=== PATIENT | female | born 1950 | race African-American/Black ===

== ENCOUNTER 2016-12-30 08:01 | Day surgery (SDC) | payer MEDICARE ==
[2016-12-29 08:32] VITALS: BMI 30.4
[2016-12-30] MEDS ORDERED: MIDAZOLAM HCL 2 MG/2 ML SINGLE DOSE VIAL ONE (10:52)
[2016-12-30] MEDS ORDERED: PROPOFOL 20 ML ONE (11:06)
[2016-12-30 12:09] VITALS: TEMP 97.8
--- NOTE | 2016-12-30 12:44 | OP ---
DATE OF OPERATION: 12/30/2016 PERFORMING PHYSICIAN: Lenny Oneal MD PREOPERATIVE DIAGNOSIS: Low back pain with lumbar radiculopathy. POSTOPERATIVE DIAGNOSIS: Low back pain with lumbar radiculopathy. PROCEDURE: Lumbar epidural steroid injection, interlaminar at the L4-L5, on the left side. ANESTHESIA: Local and MAC ANESTHESIOLOGIST: Bill Gerard MD DESCRIPTION OF PROCEDURE: I discussed with her about risks, benefits, and alternative treatments, not only limited to infection, fever, headache, numbness, tingling, weakness, injury to nerves, blood vessels, or muscles. Patient understood, agreed, and signed the written consent. The patient was placed in the prone position, head, abdomen, and legs supported with pillows. The lumbosacral area was prepped and draped with Betadine x3 and alcohol x3. Under fluoroscopy, L4-L5 vertebrae identified, on the left side. At this level, 3 mL of 1% lidocaine were infiltrated into the skin and subcutaneous tissues. A 20-gauge 3.5-inch Tuohy needle was used to expose the epidural space with a loss of resistance technique under intermittent fluoroscopy both in AP and oblique views. Omnipaque 2 mL was injected to see the flow of the dye cranially and caudally after negative aspiration. There was no venous uptake or CSF spread. Celestone 2.5 mL mixed with 1.5 mL of 0.25% preservative-free Marcaine, total around 4 mL, was injected into the epidural space after negative aspiration. While needle was withdrawn, 1 mL of 1% lidocaine was infiltrated. Bleeding was checked. Betadine was wiped off. A sterile bandage was placed. Patient was transferred to the recovery room. After observation, patient was discharged as per criteria. There was no immediate complication. Patient was told to apply ice. If any problem, call me or report to ER. Patient was given the followup appointment. Patient will resume regular diet. LENNY ONEAL M.D. BAMBI/[id number]
[2016-12-30 13:06] VITALS: BP 132/84; PULSE 62
== END 2016-12-30 13:07 | disposition home or self-care (01) ==
LOC: FASU 08:01
PROVIDERS: ATTEND Physical Medicine & Rehabilitation
PROC: 3E0R3CZ (ICD-10-PCS; 2016-12-30)
PROC: B01B1ZZ Fluoroscopy of Spinal Cord using Low Osmolar Contrast (ICD-10-PCS; 2016-12-30)
PROC: 3E0R33Z Introduction of Anti-inflammatory into Spinal Canal, Percutaneous Approach (ICD-10-PCS; principal; 2016-12-30 11:10)
DX: M54.16 Radiculopathy, lumbar region (principal); M54.5 Low back pain
CPT/HCPCS: 72100-TC; 94760

== ENCOUNTER 2017-02-03 09:40 | Day surgery (SDC) | payer MEDICARE ==
[2017-02-02 15:25] VITALS: BMI 30.6
[2017-02-03 10:05] VITALS: TEMP 98.6
[2017-02-03] MEDS ORDERED: LIDOCAINE HCL 1%, 10 MG/ML (20ML VIAL) IJ ONE (12:33)
[2017-02-03] MEDS ORDERED: IOHEXOL 180 MG/1 ML ML IJ ONE (12:34)
[2017-02-03] MEDS ORDERED: BUPIVACAINE HCL/PF 0.25% (2.5MG/ML) 10 ML VIAL IJ ONE (12:36)
[2017-02-03] MEDS ORDERED: BETAMET ACET/BETAMET NA PH 30 MG/5 ML VIAL IM ONE (12:36)
[2017-02-03] MEDS ORDERED: BUPIVACAINE HCL/PF 0.25% (2.5MG/ML) 10 ML VIAL ONE (13:38)
[2017-02-03] MEDS ORDERED: BETAMET ACET/BETAMET NA PH 30 MG/5 ML VIAL ONE (13:38)
[2017-02-03] MEDS ORDERED: LIDOCAINE HCL 1%, 10 MG/ML (20ML VIAL) ONE (13:38)
[2017-02-03 15:20] VITALS: BP 134/64; PULSE 58
--- NOTE | 2017-02-12 12:58 | OP ---
DATE OF OPERATION: 02/03/2017 PREOPERATIVE DIAGNOSIS: Low back pain, lumbar radiculopathy. POSTOPERATIVE DIAGNOSIS: Low back pain, lumbar radiculopathy. PROCEDURE PERFORMED: Lumbar epidural steroid injection, interlaminar at right L4-5 level. ANESTHESIA: Local and MAC. RIVET STICKER: Mr. Flakito NP. PROCEDURE IN DETAIL: I discussed with her in details about the risks, benefits and alteratives of treatment no only limited to infection, fever, injury to blood vessel, nerves and muscles. The patient understood and signed the informed consent. The patient was placed in the prone position with the head, abdomen and legs supported by pillows. IV sedation was given. The lumbosacral area was prepped and draped with Betadine x3 and alcohol x3. Under fluoroscopic guidance right L4-L5 level was identified. At this level 3 mL of 1% lidocaine was infiltrated. A Tuohy needle was used to approach the epidural space with loss of resistance technique with intermittent fluoroscopy both AP and oblique views. After negative aspiration, 2 mL of Omnipaque were injected to see the flow of dye and the spread both cranially and caudally. There was no positive uptake with CSF aspirate. At this level 2.5 mL of Celestone and 0.5 mL of 0.25% preservative-free Marcaine total about 5 mL were injected at this level after negative aspiration. While the Tuohy was withdrawn 1 mL of 1% lidocaine was infiltrated. Bleeding was checked. Betadine was wiped off. A sterile bandage was placed. The patient tolerated the procedure well and there were no immediate complications. The patient was transferred to the recovery room and observed for some time and discharged per discharge criteria. The patient was told to apply ice. If any problem she was told to call me or report to the ER. Followup appointment was given. LENNY SALVADOR M.D. BAMBI/[id number]
== END 2017-02-03 14:30 | disposition home or self-care (01) ==
LOC: JASU-SURG 09:40
PROVIDERS: ATTEND Physical Medicine & Rehabilitation
PROC: 3E0R3CZ (ICD-10-PCS; 2017-02-03)
PROC: B01BZZZ Fluoroscopy of Spinal Cord (ICD-10-PCS; 2017-02-03)
PROC: 3E0R33Z Introduction of Anti-inflammatory into Spinal Canal, Percutaneous Approach (ICD-10-PCS; principal; 2017-02-03 11:30)
DX: M54.16 Radiculopathy, lumbar region (principal); M54.5 Low back pain
CPT/HCPCS: 76000-TC

== ENCOUNTER 2017-06-23 09:07 | Day surgery (SDC) | payer MEDICARE ==
[2017-06-22 14:36] VITALS: BMI 29.4
[~2017-06-23 09:07] MED LIST: BETAMET ACET/BETAMET NA PH 30 MG/5 ML VIAL IJ ONE; BUPIVACAINE HCL/PF 0.25% (2.5MG/ML) 10 ML VIAL IJ ONE; IOHEXOL 180 MG/1 ML ML IJ ONE; LIDOCAINE HCL 1%, 10 MG/ML (50 mL VIAL) IJ ONE
[2017-06-23 10:10] VITALS: TEMP 97.7
[2017-06-23] MEDS ORDERED: LIDOCAINE HCL 1%, 10 MG/ML (20ML VIAL) ONE (10:59)
[2017-06-23] MEDS ORDERED: BUPIVACAINE HCL/PF 0.25% (2.5MG/ML) 10 ML VIAL ONE (10:59)
[2017-06-23] MEDS ORDERED: BETAMET ACET/BETAMET NA PH 30 MG/5 ML VIAL ONE (10:59)
[2017-06-23] MEDS ORDERED: MIDAZOLAM HCL 2 MG/2 ML SINGLE DOSE VIAL ONE (11:14)
[2017-06-23] MEDS ORDERED: PROPOFOL 20 ML ONE (11:14)
[2017-06-23] MEDS ORDERED: IOHEXOL 180 MG/1 ML ML IJ ONE (11:24)
[2017-06-23] MEDS ORDERED: LIDOCAINE HCL 1%, 10 MG/ML (50 mL VIAL) IJ ONE (11:24)
[2017-06-23] MEDS ORDERED: BUPIVACAINE HCL/PF 0.25% (2.5MG/ML) 10 ML VIAL IJ ONE (11:24)
[2017-06-23] MEDS ORDERED: BETAMET ACET/BETAMET NA PH 30 MG/5 ML VIAL IJ ONE (11:25)
--- NOTE | 2017-06-23 14:27 | PROC ---
Procedure Note Procedure: Date of service: 06/23/2017 Preoperative Diagnosis: Low back pain and lumbar radiculopathy on Left Postoperative Diagnosis: Same Procedure Performed: Lumbar Epidural Steroid Injection (LESI) on Left L5-S1 with dye under Fluoroscopy Anesthesia: Local / MAC Anesthesiologist: Dr. Bolden Procedure: I discussed with the patient in detail about the risks, benefits, and alternatives to treatment not only limited to infection, headache, numbness , weakness, and injury to nerves, blood vessels and muscles. The patient understood, agreed and signed the written consent. The patient was placed in the prone position with the head, abdomen and legs supported with the pillows. The lumbosacral area was prepped and draped with Betadine times three in a sterile fashion. Lumbar vertebrae were identified under the C-arm. At L5-S1 level on the Left side, 3 ml of 1 % Lidocaine was infiltrated into the skin and subcutaneous tissue. A 3 inch, #20 gauge Tuohy needle was advanced to the epidural space with loss of resistance technique under fluoroscopic guidance. Aspiration was negative for cerebrospinal fluid and blood. 2ml of Omnipaque ( radio-opaque dye) was injected to confirm the tip of the needle into epidural space and spread of dye. There was no CSF or vascular spread. The spread of dye was noted cranially and caudally on epidurogram. Aspiration was done again which was negative. A solution of 2.0 ml of Celestone 2 ml of 0.25% Marcaine and a total of 4 ml was injected slowly. While Tuohy needle was withdrawn 2.0 ml of 1 % Lidocaine was infiltrated. Bleeding was checked. Betadine was wiped off. A sterile bandage was placed. The patient tolerated the procedure well. There were no immediate complications. The patient was transferred to the recovery room. The patient was observed for some time and discharged as per ASU criteria. The patient was told to apply ice at the injection site. Follow up appointment was given and also call my office at [phone]. If there is any problem, call my office or report to Emergency Room. Klever Oneal M.D.
[2017-06-23 15:23] VITALS: BP 131/77; PULSE 48
== END 2017-06-23 14:00 | disposition home or self-care (01) ==
LOC: JASU-SURG 09:07
PROVIDERS: ATTEND Physical Medicine & Rehabilitation
PROC: 3E0R33Z Introduction of Anti-inflammatory into Spinal Canal, Percutaneous Approach (ICD-10-PCS; 2017-06-23)
PROC: B01BYZZ Fluoroscopy of Spinal Cord using Other Contrast (ICD-10-PCS; 2017-06-23)
PROC: 3E0R3BZ Introduction of Anesthetic Agent into Spinal Canal, Percutaneous Approach (ICD-10-PCS; principal; 2017-06-23 10:30)
DX: M54.16 Radiculopathy, lumbar region (principal)
CPT/HCPCS: 76000-TC

== ENCOUNTER 2020-09-16 18:09 | Emergency (ER) | payer BC, OTHER ==
[2020-09-16] MEDS ORDERED: SODIUM CHLORIDE 1,000 ML IV STA (18:24)
[2020-09-16 18:25] VITALS: BP 129/64; PULSE 63; TEMP 98.7; BMI 32.4
[2020-09-16 18:45] LABS: BASO % 0.3 % (0-2.0); EOS % 0.1 % (0-4.5); HEMATOCRIT 36.1 % (32.4-45.2); HEMOGLOBIN 12.3 GM/dL (10.7-15.3); LYMPH % 15.4 % (8-40); MCH 33.3 pg (25.7-33.7); MCHC 34.1 g/dl (32.0-36.0); MEAN CELL VOLUME 97.7 fl (80-96); MEAN PLT VOLUME 8.7 fl (7.5-11.1); MONO % 7.7 % (3.8-10.2); NEUT % 76.5 % (42.8-82.8); PLATELET COUNT 142 K/MM3 (134-434); RDW 13.7 % (11.6-15.6); WHITE BLOOD COUNT 7.4 K/mm3 (4.0-10.0)
[2020-09-16 19:02] LABS: CHLORIDE 105 mmol/L (98-107); POTASSIUM 3.8 mmol/L (3.5-5.1); SODIUM 142 mmol/L (136-145)
[2020-09-16 19:04] LABS: CALCIUM 8.8 mg/dL (8.5-10.1)
[2020-09-16 19:05] LABS: ANION GAP 5 MMOL/L (8-16); BLOOD UREA NITROGEN 9.4 mg/dL (7-18); CO2 32 mmol/L (21-32); GLUCOSE,RANDOM 118 mg/dL (74-106)
[2020-09-16 19:08] LABS: CREATININE 0.8 mg/dL (0.55-1.3); SGOT/AST 26 U/L (15-37); SGPT/ALT 30 U/L (13-61)
[2020-09-16 19:09] LABS: BILIRUBIN,TOTAL 0.4 mg/dL (0.2-1); TOT PROT 7.2 g/dl (6.4-8.2)
[2020-09-16 19:10] LABS: ALK PHOS 63 U/L (45-117)
[2020-09-16 19:46] LABS: URINE APPEARANCE CLEAR; URINE BILIRUBIN NEGATIVE (NEGATIVE); URINE COLOR YELLOW; URINE GLUCOSE (UA) NEGATIVE (NEGATIVE); URINE KETONE NEGATIVE (NEGATIVE); URINE LEUK ESTERASE NEGATIVE (NEGATIVE); URINE NITRITE NEGATIVE (NEGATIVE); URINE PROTEIN NEGATIVE (NEGATIVE); URINE UROBILINOGEN 0.2 mg/dL (0.2-1.0)
== END 2020-09-16 19:53 | disposition home or self-care (01) ==
LOC: JER 18:09
PROC: 3E0337Z Introduction of Electrolytic and Water Balance Substance into Peripheral Vein, Percutaneous Approach (ICD-10-PCS; principal; 2020-09-16)
DX: R53.1 Weakness (principal)
CPT/HCPCS: 36415; 71046-TC-FY; 80053; 81003; 84484; 85025; 87086; 93005; 93010; 99285-25; C9803; U0003

== ENCOUNTER 2020-09-27 19:39 | Emergency (ER) | payer BC, OTHER | END 2020-09-27 21:00 | disposition home or self-care (01) | LOC: JVIRT 19:39 | DX: U07.1 COVID-19 (principal) | CPT/HCPCS: C9803; G2251-GT; Q3014-GT; U0003 ==

== ENCOUNTER → 2021-11-28 | Day surgery (SDC) | payer BC, OTHER | END | disposition home or self-care (01) | LOC: FMAMMOTONE 12:04 | PROVIDERS: ATTEND Family Medicine | PROC: 0HBT3ZX Excision of Right Breast, Percutaneous Approach, Diagnostic (ICD-10-PCS; principal; 2021-11-28) | DX: N64.1 Fat necrosis of breast (principal); N64.89 Other specified disorders of breast; R92.0 Mammographic microcalcification found on diagnostic imaging of breast | CPT/HCPCS: 19081; 76098-TC-FY; 87899; 88305-TC; A4648 ==

== ENCOUNTER 2022-08-04 04:05 | Day surgery (SDC) | payer BC, OTHER ==
[2022-07-31 14:51] VITALS: BMI 32.9
[2022-08-04] MEDS ORDERED: LIDOCAINE HCL 1%, 10 MG/ML (20ML VIAL) ONE (07:16)
[2022-08-04] MEDS ORDERED: BUPIVACAINE HCL/PF 0.75% 10 ML VIAL ONE (07:16)
[2022-08-04] MEDS ORDERED: DEXAMETHASONE SOD PHOSPHATE 10 MG/1 ML VIAL ONE (07:16)
[2022-08-04] MEDS ORDERED: LIDOCAINE HCL/PF 1% SDV 5ML VIAL ONE (07:20)
[2022-08-04] MEDS ORDERED: BETAMET ACET/BETAMET NA PH 30 MG/5 ML VIAL ONE (08:24)
[2022-08-04] MEDS ORDERED: PROPOFOL 20 ML ONE (08:52)
[2022-08-04] MEDS ORDERED: FENTANYL CITRATE/PF 50 MCG/ML VIAL ONE (08:52)
[2022-08-04] MEDS ORDERED: MIDAZOLAM HCL 2 MG/2 ML SINGLE DOSE VIAL ONE (08:52)
[2022-08-04] MEDS ORDERED: BUPIVACAINE HCL/PF 0.25% (2.5MG/ML) 10 ML VIAL ONE (09:10)
[2022-08-04] MEDS ORDERED: IOHEXOL 180 MG/1 ML ML IJ ONE (09:20)
[2022-08-04] MEDS ORDERED: BUPIVACAINE HCL/PF 0.25% (2.5MG/ML) 10 ML VIAL IJ ONE (09:20)
[2022-08-04] MEDS ORDERED: DEXAMETHASONE SOD PHOSPHATE 10 MG/1 ML VIAL IM ONE (09:20)
[2022-08-04] MEDS ORDERED: LIDOCAINE HCL 2% (50ML VIAL) NR ONE (09:20)
[2022-08-04] MEDS ORDERED: ACETAMINOPHEN 325 MG TABLET (FP) PO ONE (14:29)
[2022-08-04] MEDS ORDERED: ACETAMINOPHEN 325 MG TABLET (FP) ONE (14:30)
[2022-08-04 15:53] VITALS: BP 135/66; PULSE 66; RESP 20; TEMP 98
== END 2022-08-04 15:54 | disposition home or self-care (01) ==
LOC: JASU-SURG 04:05
PROVIDERS: ATTEND Physical Medicine & Rehabilitation
PROC: 3E0R3BZ Introduction of Anesthetic Agent into Spinal Canal, Percutaneous Approach (ICD-10-PCS; 2022-08-04)
PROC: B01BYZZ Fluoroscopy of Spinal Cord using Other Contrast (ICD-10-PCS; 2022-08-04)
PROC: 3E0R33Z Introduction of Anti-inflammatory into Spinal Canal, Percutaneous Approach (ICD-10-PCS; principal; 2022-08-04 08:00)
DX: M54.16 Radiculopathy, lumbar region (principal); M54.50 Low back pain, unspecified
CPT/HCPCS: 76000-TC-FY; J1100

== ENCOUNTER 2023-01-05 04:06 | Day surgery (SDC) | payer BC, OTHER ==
[2022-12-30 13:12] VITALS: BMI 31.6
[~2023-01-05 04:06] MED LIST changes: -BETAMET ACET/BETAMET NA PH 30 MG/5 ML VIAL IJ ONE; +DEXAMETHASONE SOD PHOSPHATE 10 MG/1 ML VIAL IM ONE; +LIDOCAINE HCL 1% PRESERVATIVE FREE - 30ML VIAL IJ ONE; -LIDOCAINE HCL 1%, 10 MG/ML (50 mL VIAL) IJ ONE
[2023-01-05] MEDS ORDERED: BUPIVACAINE HCL/PF 0.25% (2.5MG/ML) 10 ML VIAL ONE (07:30)
[2023-01-05] MEDS ORDERED: LIDOCAINE HCL/PF 1% SDV 5ML VIAL ONE (07:30)
[2023-01-05] MEDS ORDERED: DEXAMETHASONE SOD PHOSPHATE 10 MG/1 ML VIAL ONE (07:30)
[2023-01-05] MEDS ORDERED: PROPOFOL 20 ML ONE (09:29)
[2023-01-05] MEDS ORDERED: MIDAZOLAM HCL 2 MG/2 ML SINGLE DOSE VIAL ONE (09:29)
[2023-01-05] MEDS ORDERED: SUCCINYLCHOLINE CHLORIDE 200 MG/10 ML SYRINGE ONE (09:33)
[2023-01-05] MEDS ORDERED: LIDOCAINE HCL 1% PRESERVATIVE FREE - 30ML VIAL IJ ONE (09:40)
[2023-01-05] MEDS ORDERED: BUPIVACAINE HCL/PF 0.25% (2.5MG/ML) 10 ML VIAL IJ ONE (09:41)
[2023-01-05] MEDS ORDERED: IOHEXOL 180 MG/1 ML ML IJ ONE (09:41)
[2023-01-05] MEDS ORDERED: DEXAMETHASONE SOD PHOSPHATE 10 MG/1 ML VIAL IM ONE (09:41)
[2023-01-05 10:02] VITALS: RESP 20
[2023-01-05 11:25] VITALS: BP 117/69; PULSE 53; TEMP 96.8
== END 2023-01-05 12:45 | disposition home or self-care (01) ==
LOC: JASU-SURG 04:06
PROVIDERS: ATTEND Physical Medicine & Rehabilitation
PROC: 3E0R3BZ Introduction of Anesthetic Agent into Spinal Canal, Percutaneous Approach (ICD-10-PCS; 2023-01-05)
PROC: 3E0R33Z Introduction of Anti-inflammatory into Spinal Canal, Percutaneous Approach (ICD-10-PCS; principal; 2023-01-05 10:00)
DX: M54.16 Radiculopathy, lumbar region (principal); M54.50 Low back pain, unspecified
CPT/HCPCS: 76000-TC-FY; J1100

== ENCOUNTER 2023-12-21 12:27 | Emergency (ER) | payer BC, OTHER ==
[2023-12-21 12:46] VITALS: BP 143/84; PULSE 97; RESP 17; TEMP 98.1; BMI 33.5
[2023-12-21] MEDS ORDERED: GABAPENTIN 300 MG CAPSULE ONE (14:19)
[2023-12-21] MEDS ORDERED: ACETAMINOPHEN 500 MG TABLET (FP) ONE (14:20)
[2023-12-21] MEDS: GABAPENTIN 300 MG CAPSULE PO ONE (14:23)
[2023-12-21] MEDS: ACETAMINOPHEN 500 MG TABLET (FP) PO ONE (14:23)
== END 2023-12-21 15:53 | disposition home or self-care (01) ==
LOC: JER 12:27
DX: M25.562 Pain in left knee (principal); M54.50 Low back pain, unspecified
CPT/HCPCS: 73562-TC-LT-FY; 99283-25

== ENCOUNTER 2024-05-24 04:12 | Day surgery (SDC) | payer BC, OTHER ==
[2024-05-20 15:28] VITALS: BMI 33.0
[2024-05-24] MEDS ORDERED: DEXAMETHASONE SOD PHOSPHATE 10 MG/1 ML VIAL ONE (07:36)
[2024-05-24] MEDS ORDERED: LIDOCAINE HCL/PF 1% SDV 5ML VIAL ONE ×2 (07:37)
[2024-05-24] MEDS ORDERED: BUPIVACAINE HCL/PF 0.25% (2.5MG/ML) 10 ML VIAL ONE (07:51)
[2024-05-24] MEDS ORDERED: SODIUM CHLORIDE 0.9% P/F 10 ML VIAL IJ ONE (09:00)
[2024-05-24] MEDS ORDERED: ONDANSETRON 4 MG/2 ML VIAL ONE (09:00)
[2024-05-24] MEDS ORDERED: MIDAZOLAM HCL 2 MG/2 ML SINGLE DOSE VIAL ONE (09:03)
[2024-05-24] MEDS ORDERED: KETOROLAC TROMETHAMINE 30 MG/1 ML VIAL ONE (09:33)
[2024-05-24] MEDS: LIDOCAINE HCL 1% PRESERVATIVE FREE - 30ML VIAL IJ ONE (09:34)
[2024-05-24] MEDS: DEXAMETHASONE SOD PHOSPHATE 10 MG/1 ML VIAL IM ONE (09:36)
[2024-05-24] MEDS: BUPIVACAINE HCL/PF 0.25% (2.5MG/ML) 10 ML VIAL IJ ONE (09:36)
[2024-05-24 11:56] VITALS: BP 105/58; PULSE 59; RESP 20; TEMP 97.3
== END 2024-05-24 11:35 | disposition home or self-care (01) ==
LOC: JASU-SURG 04:12
PROVIDERS: ATTEND Physical Medicine & Rehabilitation
PROC: 3E0R3BZ Introduction of Anesthetic Agent into Spinal Canal, Percutaneous Approach (ICD-10-PCS; 2024-05-24)
PROC: 3E0R33Z Introduction of Anti-inflammatory into Spinal Canal, Percutaneous Approach (ICD-10-PCS; principal; 2024-05-24 08:30)
DX: M54.16 Radiculopathy, lumbar region (principal); M54.50 Low back pain, unspecified
CPT/HCPCS: 76000-TC-FY; J1100